=== PATIENT | female | born 1960 | race Caucasian/White ===

== ENCOUNTER 2020-05-12 08:00 | Outpatient (CLI) | payer OTHER, MEDICARE, SELFPAY ==
[2020-05-12 08:30] VITALS: PULSE 82; O2SAT 86
[2020-05-12 08:33] VITALS: O2SAT 90
[2020-05-12 08:40] VITALS: PULSE 100; O2SAT 92
[2020-05-12 08:45] VITALS: PULSE 85; O2SAT 93
--- NOTE | 2020-05-12 10:11 | HOMEO2EVAL ---
Home Oxygen Evaluation RC: Home Oxygen (O2) Evaluation Start: 05/12/20 10:07 Freq: Status: Active Protocol: RPE Activity Type Activity Date Activity User E-Sign Co-Sign Detail Recorded Client Recorded Date Recorded By Document 05/12/20 08:30 [email or web address] [email or web address] 05/12/20 10:10 PHYLLIS Document 05/12/20 08:33 [email or web address] [email or web address] 05/12/20 10:10 PHYLLIS Document 05/12/20 08:40 [email or web address] [email or web address] 05/12/20 10:10 PHYLLIS Document 05/12/20 08:45 [email or web address] [email or web address] 05/12/20 10:10 PHYLLIS 05/12/20 05/12/20 05/12/20 08:30 08:33 08:40 Home O2 Evaluation Test Phase Resting Resting Exercise Oxygen Delivery Room Air Nasal Cannula Nasal Cannula Oxygen Flow Rate (L/min) 1 1 Pulse Oximetry (90-100 %) 86 L 90 92 Pulse Rate (60-100 beats/min) 82 100 Activity Tolerance Fair Rating of Perceived Dyspnea (PD) +2 Mild, Some Difficulty, Noticeable to the Observer Ambulation Distance (feet) 400 Home Oxygen Evaluation Comments STOPPED X 2 FOR WEAKNESS AND SOB, USED WHEELED WALKER ONLY NEEDED FOR STABILITY Treatment Charges O2 Evaluation 05/12/20 08:45 Home O2 Evaluation Test Phase Resting Oxygen Delivery Nasal Cannula Oxygen Flow Rate (L/min) 1 Pulse Oximetry (90-100 %) 93 Pulse Rate (60-100 beats/min) 85 Activity Tolerance Rating of Perceived Dyspnea (PD) Ambulation Distance (feet) Home Oxygen Evaluation Comments PT REQUIRES 1 LITER AT REST AND WITH EXERTION Treatment Charges
== END 2020-05-12 08:01 | disposition home or self-care (01) ==
PROVIDERS: PCP Internal Medicine; Visit Provider Internal Medicine
DX: J44.9 Chronic obstructive pulmonary disease, unspecified (principal)
CPT/HCPCS: 94618